=== PATIENT | male | born 1980 | race Caucasian/White ===

== ENCOUNTER 2024-08-02 01:59 | Emergency (ER) | payer OTHER, SELFPAY ==
[2024-08-02 02:11] VITALS: BP 122/78
[2024-08-02 03:30] VITALS: BMI 25.4
[2024-08-02] MEDS: MOTRIN 600 MG PO (03:49)
[2024-08-02] MEDS: ERYTHROMYCIN 0.5% OPHTHALMIC OINTMENT 1 APPLIC OPHTH (04:07)
--- NOTE | 2024-08-02 04:18 | ED.GENMED ---
History of Present Illness
General
Chief Complaint: Eye Problems
Source: patient
Exam Limitations: none
Time Seen by Provider: 08/02/24 03:33
Nursing documentation reviewed up to this point in time: agreed with
History of Present Illness
History of Present Illness:
43-year-old male presenting to the emergency department today with concerns of irritation discomfort to the left eye over the past 2 days. 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
Review of Systems
Review of Systems
Allergies reviewed?: Yes
All Other Systems: ROS reviewed and negative except as documented in HPI and ROS
Phy Exam
Physical Exam
Physical Exam:
GENERAL: Alert , in no apparent distress
EYE: Redness and irritation to the left eye foreign body seen to the 6:00 portion of the cornea pinpoint size pupils equal and reactive
NECK: Supple, no significant adenopathy.
ENT: o/p clr, mmm.
CARDIAC: Regular rate and rhythm .
LUNGS: Clear breath sounds bilaterally, no acute respiratory distress, no wheezes/rales/rhonchi
ABDOMEN: Soft, without focal tenderness, no r/g, no cvat
NEUROLOGICAL: Alert and oriented, no focal neuro deficits
SKIN: Warm and dry, skin intact.
MUSCULOSKELETAL: No edema, well perfused.
PSYCH: Normal and appropriate interaction.
Course
Orders/Labs/Results
Orders:
Orders
08/02/24 03:46
Ibuprofen [Motrin] 600 mg .ROUTE .STK-MED ONE
08/02/24 03:47
Fluorescein Sodium [Ful-Ariana] 1 mg .ROUTE .STK-MED ONE
Tetracaine HCl [Tetracaine 0.5% Ophthalmic Solution] 1 drop .ROUTE .STK-MED ONE
08/02/24 03:49
Ibuprofen [Motrin] 600 mg PO NOW STA
08/02/24 04:02
Erythromycin (Ilotycin) [Erythromycin 0.5% Ophthalmic Ointment] See Dose Instructions OPHTH NOW STA
Vital Signs
Initial and Last Documented VS:
Initial Vital Signs
Temp Pulse Resp BP Pulse Ox
98.3 F 57 20 122/78 98
08/02/24 02:11 08/02/24 02:11 08/02/24 02:11 08/02/24 02:11 08/02/24 02:11
Last Documented Vital Signs
Temp Pulse Resp BP Pulse Ox
98.3 F 57 20 122/78 98
08/02/24 02:11 08/02/24 02:11 08/02/24 02:11 08/02/24 02:11 08/02/24 02:11
Procedures
Eye Procedures
Anesthesia: other (Tetracaine)
Conjuctival foreign body removal was superficial- removed by: other (22-gauge needle)
Removal of corneal foreign body with: slit lamp and simple removal
Foreign body removal was: complete
After removal was there a corneal abrasion?: other (Slight rust ring)
MDM/Problems Addressed
MDM/Problems Addressed:
43-year-old male presenting to the emergency department with concerns of discomfort to his left eye. Patient found have a small pinpoint sized metal corneal foreign body. This was removed with a needle otherwise will follow-up with ophthalmology.
Given antibiotic ointment. Return precautions given.
*Critical Care Note
Total Time (30-74mins, 75-104mins- exclusive of procedures): Not Applicable
ED Attending Note
-
Portions of this chart may have been created with voice recognition software.� Occasional wrong word or��sound alike� substitutions may have occurred due to the inherent limitations of voice recognition software.
Discharge Plan
Departure
Patient Disposition: Home (Routine Discharge)
Date of Disposition: 08/02/24
Time of Disposition: 04:18
Patient with high blood pressure during this ER visit?: No
Condition: Good
Covid-19: Not Applicable
Discharge Problem:
Corneal foreign body
Instructions: Foreign Body in Eye (DC)
Prescriptions:
No Action
No Current Medications
0
Referrals:
Felicita Galeana MD [Active] - Follow up in 2-3 days
Activity Restrictions/Additional Instructions:
You came to the emergency department today with concerns of a foreign body in your eye. This was removed. Please use the antibiotic ointment 3 times daily and follow-up closely with the eye doctor. Return for any worsening, new or concerning
symptoms.
Interventions
Interventions:
*Risk Screen - Suicide Last Done: 08/02/24 02:11
*General Assessment Last Done: 08/02/24 02:11
*Neglect/Abuse Screening Last Done: 08/02/24 02:11
*ED- Fall Risk Assessment Last Done: 08/02/24 02:11
*ED COVID-19 Vaccine History Last Done: 08/02/24 02:11
Discharge Date and Time
Print Language: EQUATORIAL GUINEAN
== END 2024-08-02 04:29 | disposition home or self-care (01) ==
LOC: EMR 01:59
PROVIDERS: EMERGENCY PHYSICIAN Student in an Organized Health Care Education/Training Program; FAMILY PHYSICIAN Family Medicine
DX: T15.00XA Foreign body in cornea, unspecified eye, initial encounter (principal); W44.9XXA Unspecified foreign body entering into or through a natural orifice, initial encounter
CPT/HCPCS: 99282; 65205